=== PATIENT | male | born 1965 | race Hispanic/Latino ===

== ENCOUNTER → 2019-05-25 | Outpatient (CLI) | payer OTHER | END | disposition home or self-care (01) | LOC: SHCH 14:40 | PROVIDERS: ATTEND Internal Medicine Cardiovascular Disease | DX: R94.31 Abnormal electrocardiogram [ECG] [EKG] (principal); R07.9 Chest pain, unspecified | CPT/HCPCS: 93306 ==

== ENCOUNTER → 2019-05-31 | Outpatient (CLI) | payer OTHER ==
[~2019-05-31] VITALS: Ht 172.7 cm; Wt 92.5 kg
[~2019-05-31] MED LIST: REGADENOSON 0.4 MG/5 ML PF SYG IVP SCH
== END | disposition home or self-care (01) ==
LOC: SHCH 08:14
PROVIDERS: ATTEND Internal Medicine Cardiovascular Disease
DX: R94.31 Abnormal electrocardiogram [ECG] [EKG] (principal); R07.9 Chest pain, unspecified
CPT/HCPCS: 78452; 93017; 96374; A9500 ×2; J2785

== ENCOUNTER 2019-09-08 16:00 | Emergency (ER) | payer OTHER ==
[~2019-09-08 16:00] MED LIST changes: +ASPI-555 PO; +ATOR40TA69 PO; +FURO20TA6 PO; +METO25 PO; +NITR0.4T50 SL; -REGADENOSON 0.4 MG/5 ML PF SYG IVP SCH
[2019-09-08] MEDS ORDERED: ASPIRIN 325 MG TABLET ONE (17:19)
[2019-09-08] MEDS ORDERED: FENTANYL CITRATE PF 50 MCG/1 ML 2ML VIAL ONE (17:20)
[2019-09-08] MEDS ORDERED: NITROGLYCERIN 1GM/1 INCH PACKET TD ONE (17:20)
[2019-09-08 17:30] LABS: POTASSIUM 3.9 mmol/L (3.5-5.1)
[2019-09-08 17:31] LABS: INR 1.02 (0.85-1.15); PARTIAL THROMBOPLASTIN TIME 26.1 SEC (26.3-35.5); PROTHROMBIN TIME 10.7 SEC (9.6-11.6)
[2019-09-08 17:40] LABS: ALBUMIN 3.8 g/dL (3.5-5.0); BILIRUBIN,TOTAL 0.6 mg/dL (0.2-1.0)
[2019-09-08 17:55] LABS: B-TYPE NATRIURETIC PEPTIDE 85 pg/mL (0-100)
[2019-09-08 17:59] LABS: BASOPHILS % (AUTO) 0.5 % (0.0-5.0); EOSINOPHILS % (AUTO) 3.8 % (0.0-8.0); HEMATOCRIT 38.7 % (42-54); LYMPHOCYTES % (AUTO) 23.8 % (21.0-51.0); MEAN CORPUSCULAR HGB CONC 33.1 g/dL (32.0-36.0); MEAN CORPUSCULAR VOLUME 90.6 fL (79-99); MONOCYTES % (AUTO) 7.1 % (3.0-13.0); NEUTROPHILS % (AUTO) 64.5 % (40.0-77.0); PLATELET COUNT (AUTO) 209 K/uL (130-400); RED BLOOD CELL COUNT(AUTO) 4.27 MIL/uL (4.50-6.20); RED CELL DISTRIBUTION WIDTH 12.9 % (11.0-15.5); WHITE BLOOD COUNT (AUTO) 6.4 K/uL (4.8-10.8)
[2019-09-08] MEDS ORDERED: IOHEXOL-350 75 ML VIAL IV ONE (18:11)
== END 2019-09-08 20:09 | disposition home or self-care (01) ==
LOC: EDH 16:00
DX: R07.89 Other chest pain (principal); E11.9 Type 2 diabetes mellitus without complications; E78.00 Pure hypercholesterolemia, unspecified; Z90.49 Acquired absence of other specified parts of digestive tract; Z88.8 Allergy status to other drugs, medicaments and biological substances
CPT/HCPCS: 36415; 71045; 71275; 80053; 82550; 83880; 84484 ×2; 85025; 85610; 85730; 93005 ×2; 93970; 96374; 99285; J3010; Q9967

== ENCOUNTER 2023-06-03 06:31 | Day surgery (SDC) | payer OTHER ==
[~2023-06-03] VITALS: Ht 175.3 cm; Wt 90.7 kg
[2023-06-03] VITALS (11 sets, daily range): BP systolic 92–126; BP diastolic 54–71; PULSE 62–78; RESP 12–16
[~2023-06-03 06:31] MED LIST changes: +0.9%NACL 1000ML 1,000 ML IV ONE; +ASPI-1197 PO; -ASPI-555 PO; +ASPI-556 PO; -ATOR40TA69 PO; +CELE100 PO; +EMPA1TAB19 PO; +EZET10TA81 PO; -FURO20TA6 PO; +INSLAN SQ; +INSU100C6 SQ; +ISOS30TA92 PO; +LORA10CA PO; -METO25 PO; -NITR0.4T50 SL; +PREG100C PO; +TIRZ5PEN SQ; +TRIA10.8 NS; +VITAMIN D PO
[2023-06-03] MEDS ORDERED: ALIR75PE5 SQ (07:51)
[2023-06-03] MEDS ORDERED: PROPOFOL 10 MG/ML 20ML VIAL IV ONE (08:35)
== END 2023-06-03 10:10 | disposition home or self-care (01) ==
LOC: DAH 06:31 → ENDO 06:31
PROVIDERS: ATTEND Internal Medicine Gastroenterology
DX: Z12.11 Encounter for screening for malignant neoplasm of colon (principal); K63.5 Polyp of colon; E11.9 Type 2 diabetes mellitus without complications; E78.5 Hyperlipidemia, unspecified; F32.A Depression, unspecified; F41.9 Anxiety disorder, unspecified; I25.10 Atherosclerotic heart disease of native coronary artery without angina pectoris; Z88.8 Allergy status to other drugs, medicaments and biological substances; Z86.010 Personal history of colon polyps; Z79.899 Other long term (current) drug therapy; Z98.890 Other specified postprocedural states; Z72.89 Other problems related to lifestyle
CPT/HCPCS: 82948 ×2; 45380; J7030 ×2; J2704; A4620; A4215 ×2; A7002; A4222; A4221; A4663; A4606; J3490